=== PATIENT | male | born 1960 | race Caucasian/White ===

== ENCOUNTER 2017-02-16 07:20 | Day surgery (SDC) | payer OTHER ==
--- NOTE | 2017-02-11 11:30 | HP ---
AMENDED REPORT NOW INCLUDES COSIGNER DESIGNATION - ESIGNED BEFORE ADJUSTMENT PREOPERATIVE HISTORY AND PHYSICAL: DATE OF ADMISSION/SURGERY: 02/16/17 DATE OF OFFICE VISIT: 02/10/17 ATTENDING SURGEON: Dr. Pb Stokes * (DICTATED BY NATALEE ALLEN) PROCEDURE: Right knee arthroscopy, partial meniscectomy, and open patellar tendon debridement and repair. HISTORY OF PRESENT ILLNESS: Lorne is a 56-year-old male, who presented to the clinic for right knee pain due to a work-related injury that caused him symptoms such as catching and locking in his medial aspect of his knee. He has a medial meniscus tear and patellar tendinitis with partial tearing of the inferior pole. He has failed conservative measures and has therefore agreed to undergo a right knee arthroscopy, partial meniscectomy, open patellar tendon debridement and repair with Dr. Stokes on 02/16/17. PAST MEDICAL HISTORY: Parkinson's disease, complex regional pain syndrome of left hand. The patient has a history of MRSA infection. PAST SURGICAL HISTORY: Left hand surgery. No problems with the anesthesia. MEDICATIONS: Aleve 220 mg 1 by mouth as needed for pain. ALLERGIES: No known drug allergies. FAMILY HISTORY: Positive for heart disease and Parkinson's disease. SOCIAL HISTORY: He is 100% disabled. He has Parkinson's disease. He drinks 2 to 3 alcoholic beverages a day. He denies smoking. REVIEW OF SYSTEMS: A 14-point review of systems was reviewed with the patient. Positive for Parkinson's disease and the current complaint, otherwise negative. Denies fevers, chills, night sweats, chest pain, or shortness of breath. Denies bleeding disorder. Denies history of DVT or PE. PHYSICAL EXAMINATION GENERAL: A 56-year-old well-developed, well-nourished male, in no acute distress. Alert and oriented x3. Appropriate mood and affect. VITAL SIGNS: Height 67, weight 189, pulse 73, blood pressure 118/85, temperature 97.3, BMI 29.6. HEENT: Normocephalic, atraumatic. PERRLA. Throat clear. NECK: Supple. PULMONARY: Lungs are clear to auscultation bilaterally. No wheezing, rhonchi, or rales. CARDIO: Regular rate and rhythm. S1 and S2. No murmurs, gallops, or rubs. No edema. ABDOMEN: Positive bowel sounds, soft, nontender. NEURO: Alert and oriented x3. Cranial nerves grossly intact. Sensation is intact to light touch. MUSCULOSKELETAL: Right lower extremity: Skin is intact. No warmth or erythema. Tender over the patellar tendon proximally, tenderness over the medial joint line. Positive [place]. Range of motion 2 to 130. Stable varus and valgus stress. Calf soft, nontender. +2 PT pulse. Sensation intact to light touch distally. DIAGNOSTIC STUDIES: MRI of the right knee demonstrated a medial meniscus tear and patellar tendinitis with partial tearing of the inferior pole of the patella. IMPRESSION: Medial meniscus tear and patellar tendinitis. PLAN: The patient is scheduled to undergo a right knee arthroscopy, partial meniscectomy, open patellar tendon debridement and repair with Dr. Stokes on . He will return to the office 10 to 14 days postop for followup and suture removal. Percocet was sent to his pharmacy for postop pain management and Bactrim was sent to his pharmacy for antibiotic prophylaxis since the patient has a history of MRSA. NATALEE ALLEN [id number]/[facility] #: [id number] [place]
[~2017-02-16 07:20] MED LIST: Acetaminophen TAB* 325 MG PO ONE; Buffered Lidocaine 0.9% SYRIN* 5 ML/SYR SYRINGE INTRADERM ONE; Dexamethasone IV* 4 MG/ML 1 ML (4 MG) IV SLOW PU ONE; Famotidine IV* 10 MG/ML 2 ML (20 mg) IV ONE; Sodium Citrate/Citric Acid* 15 ML UDC PO ONE
[2017-02-16] MEDS ORDERED: Sodium Citrate/Citric Acid* 15 ML UDC ONE (07:32)
[2017-02-16] MEDS ORDERED: Acetaminophen TAB* 325 MG ONE (07:32)
[2017-02-16] MEDS ORDERED: Buffered Lidocaine 0.9% SYRIN* 5 ML/SYR SYRINGE ONE (07:32)
[2017-02-16] MEDS ORDERED: Famotidine IV* 10 MG/ML 2 ML (20 mg) ONE (07:32)
[2017-02-16] MEDS ORDERED: ceFAZolin 2 GM PREMIX (*) 2 GM/50 ML BAG IVPB ONE (07:32)
[2017-02-16] MEDS ORDERED: Dexamethasone IV* 4 MG/ML 1 ML (4 MG) ONE (07:32)
[2017-02-16] MEDS ORDERED: fentaNYL* 50 MCG/ML 2 ML VIAL (100 MCG VIAL) ONE (08:46)
[2017-02-16] MEDS ORDERED: Midazolam* 1 MG/ML 5 ML VIAL (5 MG) ONE (08:47)
[2017-02-16] MEDS ORDERED: Ondansetron INJ* 2 MG/ML VIAL IV PRN (09:24)
[2017-02-16] MEDS ORDERED: HYDROmorphone INJ* 1 MG/ML CARPUJECT SYRINGE IV PRN (09:24)
[2017-02-16] MEDS ORDERED: oxyCODONE TAB* 5 MG TAB PO PRN ×2 (09:24)
[2017-02-16] MEDS ORDERED: Scopolamine 1.5 mg* PATCH TRANSDERM PRN (09:24)
[2017-02-16] MEDS ORDERED: fentaNYL* 50 MCG/ML 2 ML VIAL (100 MCG VIAL) IV PRN (09:24)
[2017-02-16] MEDS ORDERED: Bupivacaine 0.25% SDV* 30 ML ONE (10:06)
[2017-02-16] MEDS ORDERED: Lidocaine 1% INJ* 10 MG/ML 30 ML SDV ONE (10:06)
[2017-02-16] MEDS ORDERED: Lidocaine 2% PF * 5 ML VIAL ONE ×2 (10:09)
[2017-02-16] MEDS ORDERED: Propofol* 500 MG/50 ML BTL ONE (10:30)
[2017-02-16] MEDS ORDERED: Ketorolac INJ* 30 MG/ML 1 ML VIAL ONE (10:43)
[2017-02-16 15:31] VITALS: BP 115/82
[2017-02-19] MEDS ORDERED: Scopolomine PATCH Remove* 1 NOTE MISC PATCH OFF ONE (09:25)
--- NOTE | 2017-02-28 02:57 | OP ---
DATE OF OPERATION: 02/16/17 [facility] DATE OF : 62 ATTENDING SURGEON: Pb Stokes MD. INSURANCE LOSS CONTROL SURVEYOR: NATALEE Aguiar. ANESTHESIOLOGIST: Erin Tubbs MD ANESTHESIA: Spinal anesthesia with local, MAC. PRE-OPERATIVE DIAGNOSIS: Right knee patellar tendinitis with medial meniscal tear. POST-OPERATIVE DIAGNOSIS: Right knee patellar tendinitis with medial meniscal tear. OPERATIVE PROCEDURE: Right knee arthroscopy with partial medial meniscectomy, partial lateral meniscectomy, and open patellar debridement with repair. COMPLICATIONS: None. TOURNIQUET TIME: Zero minutes. IMPLANTS USED: None. INDICATIONS: Lorne Duneas is a 56-year-old male who sustained work-related injury in 2012 that resulted in infection in different areas in his body. He has had persistent pain as well as catching and locking symptoms medially as well as patellar tendinitis symptoms. He has failed conservative management. After obtaining approval by [employer], he has elected to proceed with right knee arthroscopy. Risks and benefits of surgery were discussed at length to include, but not limited to, bleeding, infection, damage to nerves, vessels, surrounding structures, wound nonhealing, persistent pain, need for further surgery, scarring, stiffness, incomplete relief of symptoms, and risks of anesthesia. He is a high risk of infection and will be on antibiotics postoperatively. DESCRIPTION OF PROCEDURE: The patient was greeted in the preoperative area by the attending surgeon. Correct extremity was marked and consent was confirmed. The patient was then brought back to the operating suite where he was placed in supine position on the operating table. He then underwent spinal anesthesia with local MAC, which he tolerated without difficulty. The right leg was prepped and draped in usual sterile fashion with chlorhexidine soap, scrub, and alcohol wipe, and a final prep with ChloraPrep. After appropriate surgical pause indicating side, site, procedure, and administration of antibiotics, the knee was intraarticularly injected with 1% lidocaine with epi. The anterolateral portal was made sharply with 11-blade. The scope was then introduced into the joint and the joint was examined. The patellofemoral joint had grade 0 to 1 changes, with no obvious arthritis. The medial and lateral gutters were intact without any loose bodies. There was no evidence of any infection in the knee. The medial compartment was examined. There were grade 1 to 2 changes of the tibial plateau, grade 0 to 1 changes of the lateral femoral condyle. There was an unstable meniscus tear involving the posterior and medial aspects, as well as the body of the meniscus. This was then debrided back using the shaver and biters. Once this was completely removed and probed, there was no unstable tears, no evidence of propagating areas. The knee was then placed in figure-of-4 position and the lateral femoral condyle had grade 0 to 1 changes. Lateral plateau had grade 1 to 2 changes. Lateral meniscus had mild amount of fraying about the body of the meniscus, which was debrided back using the shaver. ACL and PCL were intact. There was no further evidence of chondrosis. The knee was thoroughly lavaged and removed of debris and attention was directed to patellar debridement. A 15-blade was used to make an open incision along the midline of the knee, incorporating the inferior pole of the patella as well as the superior patellar tendon. Soft tissues were carefully dissected to expose the paratenon, which was sharply incised for later closure. The inferior pole of the patella was identified and incision was made in the midline through the soft tissues of patellar tendon. There was evidence of fibrinous abnormal material at the patellar tendon. This was then carefully enveloped out and scalped out. Again , there was no sign of an active infection. The poor quality tendon was then carefully removed. The undersurface of the patella was then debrided using rasp as well as a rongeur to allow for bony bleeding to help with wound healing. The patellar tendon was then repaired in a direct fashion with 0- Vicryl interrupted sutures. Care was taken to not cause patellar baja. This was done after all excess debris was removed and the knee was thoroughly lavaged. The wound was closed in layers with 2-0 Vicryl and 3- 0 nylon. Sterile dressings were applied. The knee was intraarticularly injected with 0.25% Marcaine and in the wound as well. A Cryo/Cuff was placed. He was awoken from anesthesia and transferred to PACU in stable condition. POSTOPERATIVE PLAN: He will be weightbearing as tolerated. He will be allowed to work on range of motion. I will see him back in about 10 to 14 days. He will be discharged on pain medications as well as antibiotics. [id number]/[facility] #: [id number] [facility] PSYCHIATRIC CENTERVirginia
== END 2017-02-16 16:30 | disposition home or self-care (01) ==
LOC: OR 07:20
PROVIDERS: ATTEND Orthopaedic Surgery
DX: S83.241A Other tear of medial meniscus, current injury, right knee, initial encounter (principal); M76.51 Patellar tendinitis, right knee; S83.281A Other tear of lateral meniscus, current injury, right knee, initial encounter; X58.XXXA Exposure to other specified factors, initial encounter; Y92.9 Unspecified place or not applicable; G20 Parkinson's disease
CPT/HCPCS: A9270-GY; J0690; J1100; J1885; J2001; J2250; J2704; J3010